=== PATIENT | female | born 1945 | race Caucasian/White ===

== ENCOUNTER → 2018-05-06 17:52 | Outpatient (REF) | payer MEDICARE, SELFPAY ==
[2018-05-06 20:56] LABS: HCT 40.9 % (36.0-46.0); HGB 13.2 g/dL (12.0-15.5); Mean Corp. HGB Concentration 32.3 g/dL (32.0-36.0); Mean Corpuscular Hemoglobin 30.4 pg (27.0-33.0); Mean Corpuscular Volume 94.2 fL (80-95); Mean Platelet Volume 10.2 fL (8.0-11.0); Platelet Count 224 x1000/uL (130-400); RBC 4.34 m/cumm (4.00-5.20); RBC Distribution Width 13.9 % (11.7-14.6); White Blood Cell Count 7.36 k/cumm (4.4-10.8)
[2018-05-06 21:12] LABS: ALT 20 U/L (12-78); AST 19 U/L (15-37); Alkaline Phosphatase 123 U/L (46-116); Anion Gap 6.7 mmol/L (3-11); BUN 13 mg/dL (7-18); Bilirubin, Total 0.3 mg/dL (0.2-1.0); CO2 33.3 mmol/L (21.0-32.0); CREATININE 0.76 mg/dL (0.55-1.02); Calcium 8.9 mg/dL (8.5-10.1); Chloride 100 mmol/L (98-107); Glucose 98 mg/dL (70-100); Potassium 3.2 mmol/L (3.5-5.1); Sodium 140 mmol/L (136-145); Total Protein 7.6 g/dL (6.4-8.2)
== END ==
LOC: NCHCN 17:52
PROVIDERS: PCP Physician Assistant; Visit Provider Physician Assistant Medical
DX: R19.03 Right lower quadrant abdominal swelling, mass and lump (principal); R35.0 Frequency of micturition
CPT/HCPCS: 80053; 85027; 87086

== ENCOUNTER → 2018-05-20 14:03 | Outpatient (REF) | payer MEDICARE, SELFPAY ==
[2018-05-20 20:46] LABS: Alkaline Phosphatase 113 U/L (46-116); Bilirubin, Total 0.3 mg/dL (0.2-1.0); GGT 48 U/L (5-55)
[2018-05-22 14:49] LABS: ANA Interpretation Negative (NEGAT)
[2018-05-22 16:50] LABS: Mitochondrial Ab, M2 <0.1 U
== END ==
LOC: NCHCN 14:03
PROVIDERS: PCP Physician Assistant; Visit Provider Internal Medicine
DX: R17 Unspecified jaundice (principal); R74.8 Abnormal levels of other serum enzymes; L40.0 Psoriasis vulgaris
CPT/HCPCS: 83516; 82247; 82977; 84075; 86038

== ENCOUNTER 2018-06-29 16:52 | Outpatient (REF) | payer MEDICARE, SELFPAY ==
[2018-06-29 20:20] LABS: Bilirubin Negative (Negative); Blood Moderate (Negative); Clarity Clear; Glucose Negative (Negative); Ketones Negative (Negative); Leukocyte Esterase Negative (Negative); Nitrite Negative (Negative)
[2018-06-29 20:21] LABS: C & S Indicated? C&S Done As Ordered
[2018-06-29 20:55] LABS: Bacteria Negative HPF (Negative); Casts Negative LPF (Negative); Crystals Negative HPF (Negative); Epithelial Cells Negative HPF (Negative); Mucus Negative (Negative); Other Cells Negative (Negative); WBC Negative HPF (0-5)
== END 2018-06-29 17:12 ==
LOC: NCHCN 16:52
PROVIDERS: PCP Physician Assistant; Visit Provider Nurse Practitioner Family
DX: R31.9 Hematuria, unspecified (principal)
CPT/HCPCS: 81003; 81015; 87086

== ENCOUNTER 2018-11-09 17:59 | Outpatient (REF) | payer MEDICARE, SELFPAY ==
[2018-11-09 19:02] LABS: HCT 43.3 % (36.0-46.0); HGB 13.6 g/dL (12.0-15.5); Mean Corp. HGB Concentration 31.4 g/dL (32.0-36.0); Mean Corpuscular Hemoglobin 30.5 pg (27.0-33.0); Mean Corpuscular Volume 97.1 fL (80-95); Platelet Count 251 x1000/uL (130-400); RBC 4.46 m/cumm (4.00-5.20); RBC Distribution Width 13.7 % (11.7-14.6); White Blood Cell Count 7.83 k/cumm (4.4-10.8)
[2018-11-09 19:28] LABS: ALT 24 U/L (12-78); AST 22 U/L (15-37); Alkaline Phosphatase 124 U/L (46-116); Anion Gap 5.3 mmol/L (3-11); BUN 21 mg/dL (7-18); Bilirubin, Total 0.3 mg/dL (0.2-1.0); CO2 35.7 mmol/L (21.0-32.0); CREATININE 0.66 mg/dL (0.55-1.02); Calcium 9.8 mg/dL (8.5-10.1); Chloride 101 mmol/L (98-107); Glucose 106 mg/dL (70-100); NT-proBNP 1456 pg/mL; Potassium 4.1 mmol/L (3.5-5.1); Sodium 142 mmol/L (136-145); Total Protein 7.4 g/dL (6.4-8.2)
[2018-11-09 20:01] LABS: Troponin I 0.03 ng/mL (0.00-0.06)
== END 2018-11-09 18:19 ==
LOC: NCHCN 17:59
PROVIDERS: PCP Physician Assistant; Visit Provider Internal Medicine
DX: J44.1 Chronic obstructive pulmonary disease with (acute) exacerbation (principal); F41.0 Panic disorder [episodic paroxysmal anxiety]
CPT/HCPCS: 80053; 85027; 83880; 84484

== ENCOUNTER 2020-11-10 10:19 | Day surgery (SDC) | payer MEDICARE, SELFPAY ==
[2020-11-10 10:39] VITALS: BP 151/80; PULSE 69; RESP 18; TEMP 36.3; O2SAT 98
[2020-11-10] MEDS: Tropicam./Phenyleph. (1/2.5%) 5 ML BTL OD ×3 (11:26→11:36)
[2020-11-10] MEDS: Lidocaine 1% Pres-Free 5 ML VIAL (13:22)
[2020-11-10] MEDS: Tetracaine 0.5% 4 ML BTL OD (13:26)
[2020-11-10] MEDS: Balanced Salt Soln.-PLUS 500 ML BAG (13:33)
[2020-11-10] MEDS: Duovisc Viscoelastic System EACH 1 EACH (13:34)
[2020-11-10] MEDS: Lidocaine 2% Jelly 6 ML SYR (13:35)
[2020-11-10] MEDS: Povidone-Iodine Ophth 30 ML BTL (13:36)
[2020-11-10] MEDS: Trypan Blue 0.06% 0.5 ML SYR (13:37)
--- NOTE | 2020-11-10 13:47 | W.PM.DSUDISC ---
Discharge Plan Disposition Patient Disposition: HOME Condition: Good Discharge Details Attending Provider: Azael Montgomery Primary Care Provider: Ronald Jacobo [place] Meds and New Rx's Prescriptions: No Action cyclobenzaprine 10 mg Tablet 10 mg PO BID PRNRF: 0 amoxicillin 500 mg Capsule 2,000 mg PO DIRECTED RF: 0 atorvastatin 80 mg Tablet 80 mg PO HS RF: 0 albuterol sulfate 2.5 mg /3 mL (0.083 %) Solution For Nebulization 2.5 mg inhalation DIRECTED RF: 0 ibuprofen 800 mg Tablet 800 mg PO TID PRNRF: 0 clonazepam 0.5 mg Tablet 0.5 mg PO BID PRNRF: 0 metoprolol succinate 100 mg Tablet Extended Release 24 Hr 100 mg PO DAILY RF: 0 amlodipine 2.5 mg Tablet 2.5 mg PO DAILY RF: 0 aspirin [Aspir-81] 81 mg Tablet,Delayed Release (Dr/Ec) 81 mg PO DAILY RF: 0 triamcinolone acetonide 0.1 % Ointment 1 applic TOPICAL BID PRNRF: 0 nitroglycerin 0.4 mg Tablet, Sublingual 0.4 mg sublingual DIRECTED RF: 0 albuterol sulfate [ProAir HFA] 90 mcg/actuation Hfa Aerosol Inhaler 2 puff INHALATION QID PRNRF: 0 lisinopril 40 mg Tablet 40 mg PO DAILY RF: 0 naproxen 500 mg Tablet 500 mg PO BID RF: 0 Spiriva with HandiHaler 18 mcg Capsule, W/Inhalation Device 1 cap INHALATION DAILY RF: 0 budesonide-formoterol [Symbicort] 160-4.5 mcg/actuation Hfa Aerosol Inhaler 2 puff INHALATION BID RF: 0 Discharge Instructions Stand Alone Forms: Post-op Topical Cataract Discharge Orders Discharge Orders: Discharge Order (Routine); Ordered 11/10/20 Ordered By: Azael Montgomery DS: Diagnosis Discharge Diagnosis (1) Combined form of age-related cataract, right eye: Status: Resolved (2) Posterior subcapsular age-related cataract, right eye: Status: Resolved
--- NOTE | 2020-11-10 13:49 | ROE_ITS ---
Date of service: 11/10/20 Time of Service: 13:49 Operative Note Operative Note DATE OF PROCEDURE: 11/10/20 PRE-OP DIAGNOSIS: Dense nuclear/cortical cataract, right eye Poor red reflex, right eye secondary to cataract POST-OP DIAGNOSIS: same PROCEDURE: Cataract extraction using phacoemulsification with intraocular lens implantation, right eye, using capsular staining with Vision Blue SURGEON: Azael Montgomery ANESTHESIA: MAC (with local sub-tenon's anesthetic injection) PATHOLOGY: none sent COMPLICATIONS: None Patient was transported to: same day Patient's condition: stable Implants: Radu [employer]u / [employer] Tecnis [id number] Indications: Progressive visual loss due to cataract, right eye Procedure Description: CATARACT SURGERY OPERATIVE REPORT PREOPERATIVE DIAGNOSIS: 1. Dense nuclear/cortical cataract, right eye 2. Poor red reflex secondary to #1 POSTOPERATIVE DIAGNOSIS: Same OPERATION: 1. Cataract extraction using phacoemulsification with posterior chamber intraocular lens implant, right eye. 2. Capsular staining with Vision Blue IOL: IOL Turn Out Worker/Model: Rad[employer] Radu / JENNIFER Tecnis [id number] IOL Power: + 22.50 diopters IOL Serial Number: [id number] Optic Diameter: 6.0mm Haptic/Overall Diameter: 13.0mm PHACO INFO: Jarred Share Your Brainurion Vision System with OZil and [employer] Cumulative Dispersed Energy (CDE): 13.45 seconds SURGEON: Azael Montgomery MD, [place] ANESTHESIA: Monitored Anesthesia Care (MAC), with local sub-tenon's anesthetic infiltration COMPLICATIONS: None SPECIMENS: None INDICATIONS FOR PROCEDURE: The patient is a 75-year-old lady with history of progressive decreased vision in her right eye. She is noted to have the dense nuclear and cortical cataract of the right eye with poor visual acuity. The option of cataract surgery was offered to the patient and she wished to proceed. PROCEDURE: The correct surgical eye was identified and marked as the right eye and the pupil was dilated in the preoperative area using mydriatics and cycloplegics. The dilated pupil size was 7.0 mm. the patient elected to proceed without oral sedation. The patient was brought to the operating room where cardiopulmonary monitoring was instituted and surgical time-out was performed, confirming the correct operative eye and IOL power. Topical anesthesia was administered and ophthalmic povidone-iodine 5% was instilled into the conjunctival fornices. Lidocaine gel was applied to the cornea and the sreekanth-ocular area was prepped with Betadine 10% solution and draped in the usual sterile fashion for intraocular surgery, including an aperture drape. A Tegaderm transparent film dressing was cut in half and used to cover the lashes and lid margins. Care was taken to sequester the lashes and lid margins under the Tegaderm dressing. A lid speculum was placed between the lids of the operative eye and the Mike-Valentin operating microscope was maneuvered into position. Eugene scissors were then used to make a conjunctival buttonhole approximately 6mm posterior to the limbus in the inferonasal quadrant. Blunt dissection was carried out to expose bare sclera, and a blunt-tipped sub-tenon?s anesthesia cannula was introduced and passed posteriorly along the globe where non- preserved plain lidocaine was injected into posterior sub-Tenon?s space. A sideport knife was used to make a paracentesis port inferotemporally. Intraocular phenylephrine/lidocaine was injected into the anterior chamber. Air was injected into the anterior chamber, followed by Vision Blue, which was painted over the anterior capsule and then irrigated out with BSS. The anterior chamber was filled with viscoelastic. A 2.4mm keratome knife was used to create a half-thickness groove at the limbus and then to construct a three-plane near- clear corneal tunnel extending 2.0mm into clear cornea superiortemporally. A flap was raised on the anterior capsule and capsulorhexis forceps were used to complete a continuous curvilinear capsulorhexis of 5.5 mm. Balanced salt solution was then used to perform cortical cleaving hydrodissec tion and nuclear hydrodelineation until the lens could be freely rotated within the capsular bag. The lens nucleus was then disassembled and removed within the capsular bag and iris plane using phacoemulsification. Residual cortical material was removed using the I/A handpiece. The posterior capsule was carefully polished to remove as much residual lens epithelial cells as safely possible. The capsular bag was then inflated and the anterior chamber deepened with viscoelastic. The lens implant described above was inserted into the capsular bag using the JENNIFER [place] Injector. A Kuglen hook was used to dial the IOL into position. Residual viscoelastic was then removed first from posterior to the IOL, then from the anterior chamber using the I/A handpiece. The lens implant was noted to center nicely within the capsular bag. The incisions were stromally hydrated, and the anterior chamber was reformed using BSS. Then 0.5cc of moxifloxacin 1.0mg/ml were injected into the capsular bag and anterior chamber. The incisions were checked with a Weck spear and found to be secure. Several drops of ophthalmic povidone-iodine 5% were then applied to the eye followed by two drops of Imprimis combination prednisolone/moxifloxacin/nepafenac solution. The drapes were removed and a clear plastic protective eye shield was placed over the eye. The patient was then returned to [facility] in stable condition.
== END 2020-11-10 14:12 | disposition home or self-care (01) ==
PROVIDERS: PCP Internal Medicine; Visit Provider Ophthalmology
PROC: (CPT 66982; principal; 2020-11-10 13:30)
DX: H25.011 Cortical age-related cataract, right eye (principal); H25.11 Age-related nuclear cataract, right eye; H35.89 Other specified retinal disorders; J44.9 Chronic obstructive pulmonary disease, unspecified
CPT/HCPCS: 66982; V2632

== ENCOUNTER 2021-08-14 17:02 | Outpatient (REF) | payer MEDICARE, SELFPAY | END 2021-08-14 17:03 | disposition home or self-care (01) | LOC: NCHCN 17:02 | PROVIDERS: PCP Internal Medicine; Visit Provider Nurse Practitioner Family | DX: R30.9 Painful micturition, unspecified (principal) | CPT/HCPCS: 87480; 87510; 87660 ==

== ENCOUNTER 2021-09-11 15:09 | Outpatient (REF) | payer MEDICARE, SELFPAY ==
[2021-09-13 13:06] LABS: COVID-19 RT-PCR UVMMC Result Negative (Negative)
== END 2021-09-11 15:10 | disposition home or self-care (01) ==
LOC: NCHCN 15:09
PROVIDERS: PCP Internal Medicine; Visit Provider Nurse Practitioner Family
DX: Z20.822 Contact with and (suspected) exposure to COVID-19 (principal); R09.81 Nasal congestion
CPT/HCPCS: U0003

== ENCOUNTER 2021-12-10 00:14 | Outpatient (CLI) | payer MEDICARE, SELFPAY ==
--- NOTE | 2021-12-10 14:05 | DI.CTLCSR_ITS ---
Exam(s) CT CHEST LUNG CANCER SCREEN EXAM: CT CHEST LUNG CANCER SCREEN CLINICAL HISTORY: Screening for lung cancer,FORMER SMOKER, Z87.891 TECHNIQUE: Imaging Protocol: Axial computed tomography images with coronal and sagittal reformatted images were created and reviewed COMPARISON: No exams were available for comparison FINDINGS: Tracheobronchial tree: Patent where visualized. Mediastinum and Ilene: No dominant adenopathy or fluid collection. Pulmonary parenchyma: No consolidation or dominant measurable mass. Moderate emphysematous changes. Linear atelectasis or scarring the right lung base. Lung Nodules: None. Pleura: No effusion or pneumothorax. Heart: The heart is not dilated. coronary artery calcifications are seen. Aorta: Thoracic aorta non-dilated. Mild calcification. Upper abdomen: Unremarkable. Bones: Multiple thoracic compression fractures, greatest in the mid thoracic region. No lytic or emily stic lesions. Soft Tissues: Unremarkable. IMPRESSION: No suspicious pulmonary nodules. Multiple thoracic compression fractures. Emphysematous changes. Lung RADS Cat 1 - Negative: No nodules and definitely benign nodules Lung-RADS 1.0 CATEGORIES: Category 0 - Prior chest CT exam(s) being located for comparison. Category 1 - Annual screening in 12 months. No nodules or definitely benign nodules. Category 2 - Annual screening in 12 months. Benign appearance. Nodules with low likelihood of becomin g active cancer. Category 3 - 6-month follow-up. Probably benign. Short-term follow-up suggested. Nodules with low lik elihood of becoming active cancer. Category 4A - 3-month follow-up and CT/PET if >8 mm in size. Suspicious finding. Findings which requi re additional testing. Category 4B - Findings which require additional testing and tissue sampling. Category 4X - Category 3 or 4 nodules with additional features or imaging findings that increases the suspicion of malignancy. Modifier S- Potentially clinically significant findings (non lung cancer) RADIATION DOSE DELIVERED: 77.35mGy.cm Total DLP 1.84mGy CTDIvol DATA REPOSITORY: All CT scans at this facility are submitted to the National Radiology Data Registry (NRDR) Dose Index Registry (DIR) with the [employer] ([employer]). RADIATION OPTIMIZATION: All CT scans at this facility use at least one of these dose optimization te chniques: automated exposure control; mA and/or kV adjustment per patient size (includes targeted exa ms where dose is matched to clinical indication); or iterative reconstruction.
== END 2021-12-10 00:34 ==
PROVIDERS: PCP Internal Medicine; Visit Provider Student in an Organized Health Care Education/Training Program
DX: Z87.891 Personal history of nicotine dependence (principal); Z12.2 Encounter for screening for malignant neoplasm of respiratory organs; R91.8 Other nonspecific abnormal finding of lung field
CPT/HCPCS: 71271

== ENCOUNTER 2022-02-12 18:22 | Outpatient (REF) | payer MEDICARE, SELFPAY ==
[2022-02-12 19:26] LABS: ALT 22 U/L (14-59); AST 20 U/L (15-37); Albumin 3.8 g/dL (3.4-5.0); Alkaline Phosphatase 142 U/L (46-116); Bilirubin, Direct 0.1 mg/dL (0.0-0.2); Bilirubin, Total 0.4 mg/dL (0.2-1.0); Calculated LDL 150 mg/dL (<100); Cholesterol 231 mg/dL (<200); HDL Cholesterol 46 mg/dL (40-60); Total Protein 7.1 g/dL (6.4-8.2); Triglyceride 178 mg/dL (<150)
== END 2022-02-12 18:23 | disposition home or self-care (01) ==
LOC: LBN 18:22
PROVIDERS: PCP Internal Medicine; Visit Provider Internal Medicine Interventional Cardiology
DX: E78.5 Hyperlipidemia, unspecified (principal)
CPT/HCPCS: 80061; 80076

== ENCOUNTER 2022-05-20 18:40 | Outpatient (REF) | payer MEDICARE, SELFPAY ==
[2022-05-20 19:54] LABS: Abs Immature Grans 0.03 10^3/uL (0.0-0.06); Absolute Basophil Count 0.05 10^3/uL (0.0-0.2); Absolute Eosinophil Count 0.01 10^3/uL (0.0-0.7); Absolute Lymphocyte Count 1.36 10^3/uL (1.2-3.4); Absolute Monocyte Count 0.57 10^3/uL (0.1-0.8); Absolute Neutrophil Count 7.02 10^3/uL (1.2-6.7); Basophils % 0.6; Eosinophils % 0.1; HCT 36.3 % (36.0-46.0); HGB 11.6 g/dL (11.2-15.7); Immature Grans % 0.3; MCH 28.9 pg (27.0-33.0); MCV 90 fL (80-95); MPV 10.5 fL (8.0-11.0); Monocytes % 6.3; Neutrophils % 77.7; Platelet Count 219 10^3/uL (130-400); RBC 4.02 10^6/uL (3.93-5.22); RDW-SD 42.9 fL; WBC 9.04 10^3/uL (4.4-10.8)
[2022-05-20 20:22] LABS: Albumin 3.5 g/dL (3.4-5.0); BUN 21 mg/dL (7-18); Calcium 8.9 mg/dL (8.5-10.1); Chloride 99 mmol/L (98-107); Glucose 111 mg/dL (74-106); PHOSPHORUS 3.9 mg/dL (2.6-4.7); Potassium 3.2 mmol/L (3.5-5.1); Sodium 140 mmol/L (136-145)
== END 2022-05-20 18:41 | disposition home or self-care (01) ==
LOC: NCHCN 18:40
PROVIDERS: PCP Internal Medicine; Visit Provider Internal Medicine
DX: M54.50 Low back pain, unspecified (principal); I10 Essential (primary) hypertension
CPT/HCPCS: 80069; 85025

== ENCOUNTER 2023-04-22 14:50 | Outpatient (REF) | payer MEDICARE, SELFPAY ==
[2023-04-22 19:44] LABS: ALT 17 U/L (14-59); AST 27 U/L (15-37); Albumin 3.6 g/dL (3.4-5.0); Alkaline Phosphatase 137 U/L (46-116); Anion Gap 6.1 mmol/L (3-11); Bilirubin, Total 0.3 mg/dL (0.2-1.0); CO2 32.9 mmol/L (21.0-32.0); CREATININE 0.9 mg/dL (0.55-1.02); Calcium 8.9 mg/dL (8.5-10.1); Chloride 103 mmol/L (98-107); Creatine Kinase 78 U/L (26-192); Estimated GFR 66.67 (mL/min/1.73m2); Glucose 112 mg/dL (74-106); Potassium 3.4 mmol/L (3.5-5.1); Sodium 142 mmol/L (136-145)
[2023-04-22 20:24] LABS: BUN 15 mg/dL (7-18); Calculated LDL 93 mg/dL (<100); Cholesterol 178 mg/dL (<200); HDL Cholesterol 52 mg/dL (40-60); Triglyceride 166 mg/dL (<150)
== END 2023-04-22 14:51 | disposition home or self-care (01) ==
LOC: NCHCN 14:50
PROVIDERS: PCP Internal Medicine; Visit Provider Internal Medicine
DX: Z00.00 Encounter for general adult medical examination without abnormal findings (principal); E66.9 Obesity, unspecified; E87.6 Hypokalemia; R74.8 Abnormal levels of other serum enzymes; I10 Essential (primary) hypertension
CPT/HCPCS: 80053; 80061; 82550

== ENCOUNTER 2023-12-29 20:35 | Outpatient (REF) | payer MEDICARE, SELFPAY ==
[2023-12-29 20:03] LABS: HCT 37.9 % (36.0-46.0); HGB 11.9 g/dL (11.2-15.7); MCH 30.1 pg (27.0-33.0); MCHC 31.4 % (32.0-36.0); MCV 96 fL (80-95); MPV 10.2 fL (8.0-11.0); Platelet Count 269 10^3/uL (130-400); RBC 3.96 10^6/uL (3.93-5.22); RDW 12.5 % (11.7-14.6); RDW-SD 44.3 fL; WBC 8.83 10^3/uL (4.4-10.8)
[2023-12-29 20:24] LABS: ALT 22 U/L (14-59); AST 20 U/L (15-37); Albumin 3.7 g/dL (3.4-5.0); Alkaline Phosphatase 132 U/L (46-116); Anion Gap 4.1 mmol/L (3-11); BUN 20 mg/dL (7-18); Bilirubin, Total 0.6 mg/dL (0.2-1.0); CO2 31.9 mmol/L (21.0-32.0); CREATININE 0.8 mg/dL (0.55-1.02); Calcium 9.4 mg/dL (8.5-10.1); Chloride 103 mmol/L (98-107); Estimated GFR 76.31 (mL/min/1.73m2); Ferritin 58 ng/mL (8-252); Glucose 103 mg/dL (74-106); Potassium 4.5 mmol/L (3.5-5.1); Sodium 139 mmol/L (136-145); TSH 1.12 uIU/Ml (0.36-3.74); Total Protein 7.1 g/dL (6.4-8.2)
[2023-12-29 20:33] LABS: Iron 86 ug/dL (50-170); Total Iron Binding Capacity 336 ug/dL (250-450); Transferrin Sat 26 % (15-50)
[2023-12-30 19:27] LABS: Hepatitis C Ab w Rflx HCV PCR Negative (Negative)
== END 2023-12-29 20:36 | disposition home or self-care (01) ==
LOC: NCHCN 20:35
PROVIDERS: PCP Internal Medicine; Visit Provider Internal Medicine
DX: Z11.59 Encounter for screening for other viral diseases (principal); I10 Essential (primary) hypertension; R53.83 Other fatigue
CPT/HCPCS: 80053; 85027; 86803; 82728; 83540; 83550; 84443

== ENCOUNTER → 2024-01-22 14:16 | Outpatient (BNVA) | payer MEDICARE, SELFPAY | PROVIDERS: PCP Internal Medicine; Referring Provider Internal Medicine; Visit Provider Student in an Organized Health Care Education/Training Program | DX: J43.2 Centrilobular emphysema (principal); J96.11 Chronic respiratory failure with hypoxia | CPT/HCPCS: 99214 ==

== ENCOUNTER → 2024-02-05 00:08 | Outpatient (CLI) | payer MEDICARE, SELFPAY ==
--- NOTE | 2024-02-05 | DI.CTLCSR_ITS ---
Exam(s) CT CHEST LUNG CANCER SCREEN EXAM: CT CHEST LUNG CANCER SCREEN CLINICAL HISTORY: Z87.891 Pers HX of nicotine Dependence Screening for lung cancer TECHNIQUE: Imaging Protocol: Axial computed tomography images with coronal and sagittal reformatted images were created and reviewed COMPARISON: CT CT CHEST LUNG CANCER SCREEN from 12/10/[address] CTA CHEST W AND/OR WO CONTRAST from 06/14/2022 FINDINGS: Tracheobronchial tree: Patent where visualized. Pulmonary parenchyma: Moderate centrilobular emphysematous changes. The scarring in the periphery of the right lower lobe is unchanged. No focal consolidating infiltrates are seen. Lung Nodules: None. Mediastinum and Ilene: No dominant adenopathy or fluid collection. The esophagus is unremarkable. Thyroid gland: Unremarkable. Lymph nodes: Unremarkable. Pleura: No effusion or pneumothorax. Heart: The heart is not dilated. Coronary artery calcifications and/or stents are present. No perica rdial effusion. Aorta: Thoracic aorta non-dilated.Atherosclerotic calcification is present. Upper abdomen: There is stable cyst in the left lobe of the liver. Soft Tissues: Unremarkable. Bones: There are age-appropriate degenerative changes in the spine. There are numerous compression f racture deformities in the thoracic and lumbar spine. There has been further decrease in cysts heigh t of the L1 compression fracture since the prior examination from 06/14/2022. IMPRESSION: No pulmonary nodules. Lung RADS Cat 1 - Negative: No nodules and definitely benign nodules Lung-RADS 1.0 CATEGORIES: Category 0 - Prior chest CT exam(s) being located for comparison. Category 1 - Annual screening in 12 months. No nodules or definitely benign nodules. Category 2 - Annual screening in 12 months. Benign appearance. Nodules with low likelihood of becomin g active cancer. Category 3 - 6-month follow-up. Probably benign. Short-term follow-up suggested. Nodules with low lik elihood of becoming active cancer. Category 4A - 3-month follow-up and CT/PET if >8 mm in size. Suspicious finding. Findings which requi re additional testing. Category 4B - Findings which require additional testing and tissue sampling. Suspicious finding. Category 4X - Category 3 or 4 nodules with additional features or imaging findings that increases the suspicion of malignancy. Modifier S- Potentially clinically significant finding. (Non lung cancer) RADIATION DOSE DELIVERED: 77.99mGy.cm Total DLP 77.99mGy.cmTotal DLP DATA REPOSITORY: All CT scans at this facility are submitted to the National Radiology Data Registry (NRDR) Dose Index Registry (DIR) with the [employer] (A[employer]). RADIATION OPTIMIZATION: All CT scans at this facility use at least one of these dose optimization te chniques: automated exposure control; mA and/or kV adjustment per patient size (includes targeted exa ms where dose is matched to clinical indication); or iterative reconstruction.
== END ==
PROVIDERS: PCP Internal Medicine; Visit Provider Student in an Organized Health Care Education/Training Program
DX: Z12.2 Encounter for screening for malignant neoplasm of respiratory organs (principal); Z87.891 Personal history of nicotine dependence
CPT/HCPCS: 71271

== ENCOUNTER 2024-02-25 18:34 | Outpatient (REF) | payer MEDICARE, SELFPAY ==
[2024-02-25 21:13] LABS: HCT 39.1 % (36.0-46.0); MCHC 30.7 % (32.0-36.0); MCV 98 fL (80-95); MPV 10.8 fL (8.0-11.0); Platelet Count 242 10^3/uL (130-400); RDW 13.1 % (11.7-14.6); RDW-SD 47.3 fL; WBC 11.01 10^3/uL (4.4-10.8)
== END 2024-02-25 18:35 | disposition home or self-care (01) ==
LOC: NCHCN 18:34
PROVIDERS: PCP Internal Medicine; Visit Provider Nurse Practitioner Family
DX: R53.83 Other fatigue (principal)
CPT/HCPCS: 85027

== ENCOUNTER → 2024-08-31 13:48 | Outpatient (BNVA) | payer MEDICARE, SELFPAY | PROVIDERS: PCP Internal Medicine; Referring Provider Internal Medicine; Visit Provider Physician Assistant Surgical | DX: J43.2 Centrilobular emphysema (principal); J96.11 Chronic respiratory failure with hypoxia; Z87.891 Personal history of nicotine dependence | CPT/HCPCS: 99214 ==

== ENCOUNTER 2024-12-30 16:59 | Outpatient (REF) | payer MEDICARE, SELFPAY ==
[2024-12-30 19:47] LABS: HCT 38.2 % (36.0-46.0); HGB 11.7 g/dL (11.2-15.7); MCH 29.2 pg (27.0-33.0); MCHC 30.6 % (32.0-36.0); MCV 95 fL (80-95); MPV 10.9 fL (8.0-11.0); Platelet Count 229 10^3/uL (130-400); RBC 4.01 10^6/uL (3.93-5.22); RDW 13.2 % (11.7-14.6); RDW-SD 45.7 fL; WBC 9.12 10^3/uL (4.4-10.8)
[2024-12-30 20:16] LABS: ALT 23 U/L (14-59); AST 22 U/L (15-37); Albumin 3.8 g/dL (3.4-5.0); Alkaline Phosphatase 132 U/L (46-116); Anion Gap 8.5 mmol/L (3-11); BUN 22 mg/dL (7-18); Bilirubin, Total 0.4 mg/dL (0.2-1.0); CO2 30.5 mmol/L (21.0-32.0); CREATININE 1.1 mg/dL (0.55-1.02); Calcium 9.7 mg/dL (8.5-10.1); Calculated LDL 89 mg/dL (<100); Chloride 104 mmol/L (98-107); Cholesterol 184 mg/dL (<200); Estimated GFR 51.75 (mL/min/1.73m2); Glucose 117 mg/dL (74-106); HDL Cholesterol 60 mg/dL (>or=50); Magnesium 2.1 mg/dL (1.8-2.4); Potassium 3.9 mmol/L (3.5-5.1); Sodium 143 mmol/L (136-145); Total Protein 7.3 g/dL (6.4-8.2); Triglyceride 178 mg/dL (<150)
== END 2024-12-30 17:00 | disposition home or self-care (01) ==
LOC: NCHCN 16:59
PROVIDERS: PCP Internal Medicine; Visit Provider Internal Medicine
DX: I10 Essential (primary) hypertension (principal)
CPT/HCPCS: 80053; 80061; 85027; 83735

== ENCOUNTER → 2025-05-24 13:51 | Outpatient (BNVA) | payer MEDICARE, SELFPAY | PROVIDERS: PCP Internal Medicine; Referring Provider Internal Medicine; Visit Provider Physician Assistant Surgical | DX: J44.9 Chronic obstructive pulmonary disease, unspecified (principal); J96.11 Chronic respiratory failure with hypoxia; Z87.891 Personal history of nicotine dependence | CPT/HCPCS: 99214; 36415 ==

== ENCOUNTER 2025-05-24 19:54 | Outpatient (REF) | payer MEDICARE, SELFPAY ==
[2025-05-24 15:57] LABS: Abs Immature Grans 0.02 10^3/uL (0.0-0.06); HCT 35.8 % (36.0-46.0); HGB 11.1 g/dL (11.2-15.7); Immature Grans % 0.2 %; MCH 28.7 pg (27.0-33.0); MCHC 31.0 % (32.0-36.0); MCV 93 fL (80-95); MPV 10.0 fL (8.0-11.0); Platelet Count 291 10^3/uL (130-400); RBC 3.87 10^6/uL (3.93-5.22); RDW 13.5 % (11.7-14.6); RDW-SD 45.8 fL; WBC 9.32 10^3/uL (4.4-10.8)
== END 2025-05-24 19:55 | disposition home or self-care (01) ==
LOC: LBN 19:54
PROVIDERS: PCP Internal Medicine; Visit Provider Physician Assistant Surgical
DX: J43.2 Centrilobular emphysema (principal)
CPT/HCPCS: 85025